=== PATIENT | male | born 1945 | race Caucasian/White ===

== ENCOUNTER 2017-01-07 15:57 | Emergency (ER) | payer MEDICAID, MEDICARE ==
[2017-01-07 15:58] VITALS: BMI 36.9
[2017-01-07 16:26] VITALS: TEMP 97.8
--- NOTE | 2017-01-07 17:01 | ED PDOC ---
Arrival/HPI - General Chief Complaint: Abnormal Labs Time Seen by Provider: 01/07/17 16:28 Historian: Patient, Family - History of Present Illness Narrative History of Present Illness (Text): 01/07/17 19:08 Patient is a 71 yo male, past medical history of cva, past medical history of valvular heart disease on Coumadin, presents to ED from Dr. Gallo's office with history of "high INR" and history of headache, generalized, since last night. Patient has prior history of stroke and denies any new weakness or visual symptoms. Denies neck pain. Denies photophobia. Denies dark or bloody stool. Past Medical History - Tetanus Immunization Tetanus Immunization: Unknown - Cardiac Hx Cardiac Disorders: Yes Hx Hypertension: Yes Hx Pacemaker: Yes - Pulmonary Hx Respiratory Disorders: Yes Hx Asthma: Yes Hx Chronic Obstructive Pulmonary Disease (COPD): Yes - Neurological Hx Neurological Disorder: Yes Other/Comment: neuropathy - HEENT Hx HEENT Disorder: No - Renal Hx Renal Disorder: No - Endocrine/Metabolic Hx Endocrine Disorders: Yes Hx Diabetes Mellitus Type 2: Yes - Hematological/Oncological Hx Blood Disorders: Yes Hx Anemia: Yes - Integumentary Hx Dermatological Disorder: No - Musculoskeletal/Rheumatological Hx Musculoskeletal Disorders: Yes Hx Arthritis: Yes (ANKLE) Hx Falls: Yes Hx Fractures: Yes (CLOSED ANKLE FX) Hx Osteoarthritis: Yes Hx Unsteady Gait: Yes Other/Comment: OBESITY - Gastrointestinal Hx Gastrointestinal Disorders: Yes Hx Gastroesophageal Reflux: Yes - Genitourinary/Gynecological Hx Genitourinary Disorders: No - Psychiatric Hx Psychophysiologic Disorder: No Hx Emotional Abuse: No Hx Physical Abuse: No Hx Substance Use: No - Surgical History 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) - Anesthesia Hx Anesthesia: Yes - Suicidal Assessment Feels Threatened In Home Enviroment: No Family/Social History Family/Social History: Unknown Family HX Smoking Status: Current Some Days Smoker Hx Alcohol Use: No Hx Substance Use: No Hx Substance Use Treatment: No Allergies/Home Meds Allergies/Adverse Reactions: Allergies Penicillins Allergy (Verified 01/07/17 16:17) RASH Home Medications: Home Meds Medication Instructions Recorded Confirmed Losartan/Hydrochlorothiazide 1 tab PO QAM 03/22/12 01/07/17 [Hyzaar 100-25 Tablet] Metoprolol Succinate [Toprol XL] 100 mg PO DAILY 03/22/12 01/07/17 Glipizide [Glipizide] 10 mg PO DAILY 09/19/13 01/07/17 Isosorbide Mononitrate [Isosorbide 30 mg PO DAILY 09/19/13 01/07/17 Mononitrate] Roflumilast [Daliresp] 500 mcg PO DAILY 09/19/13 01/07/17 Tiotropium [Spiriva] 18 mcg INH DAILY 09/19/13 01/07/17 Warfarin [Coumadin] 4 mg PO BID 09/22/13 01/07/17 Omeprazole 40 mg PO DAILY 11/22/13 01/07/17 Ambien 10 mg PO HS 01/27/16 01/07/17 Aspirin 81 mg PO DAILY 01/27/16 01/07/17 Fluticasone Propionate 2 puff PO DAILY 01/27/16 01/07/17 Lasix 40 mg PO DAILY 01/27/16 01/07/17 Lyrica 200 mg PO TID 01/27/16 01/07/17 Nexium 40 mg PO DAILY 01/27/16 01/07/17 PARoxetine 40 mg PO DAILY 01/27/16 01/07/17 Potassium Chloride 20 meq PO DAILY 01/27/16 01/07/17 Pravastatin Sodium 40 mg PO DAILY 01/27/16 01/07/17 metFORMIN 500 mg PO BID 01/27/16 01/07/17 Review of Systems - Review of Systems Constitutional: Fatigue. absent: Fevers Eyes: Vision Changes (chronic visual disturbance) ENT: absent: Hearing Changes, Sore Throat Respiratory: absent: SOB Cardiovascular: absent: Chest Pain Gastrointestinal: absent: Abdominal Pain, Nausea, Vomiting Genitourinary Male: absent: Dysuria, Frequency Musculoskeletal: absent: Back Pain Skin: absent: Rash Neurological: Headache. absent: Dizziness, Focal Weakness, Gait Changes, Speech Changes, Disequilibrium Hemo/Lymphatic: Easy Bleeding Physical Exam - Physical Exam Narrative Physical Exam (Text): Head: Atraumatic. Normocephalic. Eyes: PERRL. EOMI. Visual acuity and visual cooley AT BASELINE as described by patient. No acute visual acuity deficits. ENT: Mucous membranes are moist and intact. Oropharynx is clear and symmetric. Neck: Supple. Full ROM. No JVD. No lymphadenopathy. Cardiovascular: Regular rate. Regular rhythm. Systolic murmur. Pulmonary/Chest: No evidence of respiratory distress. Clear to auscultation bilaterally. No wheezing, rales or rhonchi. Abdominal: Soft and non-distended. There is no tenderness. No rebound, guarding, or rigidity. No organomegaly. Good bowel sounds. Back: No CVA tenderness. Extremities: No edema. No cyanosis. No clubbing. Full range of motion in all extremities. No calf tenderness. Skin: Skin is warm and dry. No petechiae. No purpura. Neurological: Alert, awake. Normal speech. No meningeal signs. No facial droop. No slurred speech. Steady gait. No focal acute weakness, no acute sensory deficits. Psychiatric: Good eye contact. Normal interaction, affect, and behavior. Vital Signs Reviewed: Yes Vital Signs Temp Pulse Resp BP Pulse Ox 01/07/17 20:25 76 16 146/70 98 01/07/17 18:00 69 18 124/61 97 01/07/17 16:27 97.8 F 76 18 126/64 97 01/07/17 16:22 97.8 F 76 16 126/64 97 Temperature: Afebrile Appearance: Positive for: Uncomfortable Pain Distress: Mild Mental Status: Positive for: Alert and Oriented X 3 - Systems Exam Head: Present: Atraumatic, Normocephalic Extroacular Muscles: Present: EOMI Mouth: Present: Moist Mucous Membranes Pharnyx: No: ERYTHEMA Nose (Internal): Present: Normal Inspection Neck: Present: Normal Range of Motion. No: Meningeal Signs Respiratory/Chest: Present: Clear to Auscultation. No: Respiratory Distress Cardiovascular: Present: Regular Rate and Rhythm Abdomen: No: Tenderness, Distention Back: No: CVA Tenderness Upper Extremity: No: Cyanosis, Edema Lower Extremity: No: Edema Neurological: Present: Speech Normal, Motor Func Grossly Intact, Normal Sensory Function, Other (visual field deficits, reports chornic) Skin: Present: Warm Psychiatric: Present: Alert, Normal Concentration Medical Decision Making ED Course and Treatment: Patient sent from Dr. Gallo's office. I discussed his history and presentation with Dr. Gallo. Patient has prior history of stroke that resulted reportedly in visual field deficits. He later clarifies that he does not have a "headache" and describes that he "felt like blood was rushing down my head inside". He denies trauma. Denies neck pain. DENIES any new visual symptoms, denies any numbness or weakness or gait instability. No signs of active bleeding noted, no history of bleeding or hemoptysis or hematuria or melena or bright red blood per rectum. CT head ordered, patient requested ct angio to be obtained. CT angio obtained as prior hx of cva, although current exam with NO acute neuro deficits. CT angio reported as follows: CT Angiography IMPRESSION: No intracranial occlusion or aneurysm. No abnormal enhancement or intracranial mass. Dictated and Authenticated by: Poncho Padilla MD 01/07/2017 8:04 PM Eastern Time ([place] & [place]) This ct report discussed with patient WELL LIMITATIONS of this imaging study in evaluating for bleeds or infarcts at times. I have also discussed patient's elevated INR as well as risks of bleeding, as well as discussed indications for administering Vitamin K. Patient WITH NO CEREBRAL HEMORRHAGE OR ACTIVE BLEEDING NOTED CURRENTLY. Have advised patient, with consultation with PMD, to hold Coumadin and stated that INR needs to be repeated. Risks of subtherapeutic INR d/w patient and in laymen's terms I discussed with him need for repeat INR within 2-3 days. I have advised admission to the hospital as he developed shortness of breath in ED and required nebulizer. He feels better after nebulizer. No headache or focal new neurological symptoms. I have IN LENGTH discussed indications for admission as well as risks and limitations of labs and imaging studies, especially given his past history, and he states he does not want to be admitted to hospital and that he understands risks. Patient will sign out against medical advice. 01/07/17 20:59 Leaving Against Medical Advice (AMA): The patient is choosing to leave against medical advice. I have personally explained to the patient that choosing to do so may result in permanent bodily harm or . I have discussed at great length that without further evaluation and monitoring there may be unforeseen circumstances and/or deterioration causing permanent bodily harm or as a result of their choice. The patient is alert, oriented, and shows the mental capacity to make clear decisions regarding the patients health care at this time. The patient continues to wish to leave against medical advice. The patient has been advised that they should return to the emergency room immediately if they change their mind at any time, or if their condition begins to change or worsen in any way. 0 - Lab Interpretations Lab Results: 01/07/17 17:35 01/07/17 17:35 Lab Results 01/07/17 17:35: WBC 7.4 D, RBC 6.01, Hgb 12.6 L, Hct 39.4 L, MCV 65.6 L, MCH 21.0 L, MCHC 32.0, RDW 17.7 H, Plt Count 202, Gran % 57.7, Lymph % (Auto) 27.3, [place] % (Auto) 9.3 H, Eos % (Auto) 5.2 H, Baso % (Auto) 0.5, Gran # 4.29, Lymph # 2.0, [place] # 0.7 H, Eos # 0.4, Baso # 0.04, PT 82.0 H*, INR 7.59 H*, APTT 56.9 H, Sodium 136, Potassium 3.9, Chloride 98, Carbon Dioxide 26, Anion Gap 16, BUN 23 H, Creatinine 1.2, Est GFR ( Amer) > 60, Est GFR (Non-Af Amer) 60, Random Glucose 168 H, Calcium 9.4, Total Bilirubin 0.7, AST 37, ALT 29, Alkaline Phosphatase 78, Lactate Dehydrogenase 743 H, Total Creatine Kinase 135 , Troponin I < 0.01 D, Total Protein 7.6, Albumin 4.3, Globulin 3.4, Albumin/ Globulin Ratio 1.3 01/07/17 17:16: POC Glucose (mg/dL) 174 H - RAD Interpretation Radiology Orders: 01/07/17 18:08 ANGIOGRAPHY HEAD [CT] Stat Qc Chemist: Radiologist - EKG Interpretation EKG Interpretation (Text): 01/07/17 21:00 normal sinus rhythm rate of [address] elevations Interpreted by ED Physician: Yes Type: 12 lead EKG - Medication Orders Current Medication Orders: Discontinued Medications Albuterol/Ipratropium (Duoneb 3 Mg/0.5 Mg (3 Ml) Ud) 3 ml IH STAT STA Stop: 01/07/17 20:22 Last Admin: 01/07/17 20:35 Dose: 3 ML Glipizide (Glucotrol) 10 mg PO DAILY KALEB Hydrochlorothiazide (Hydrodiuril) 25 mg PO QAM KALEB Iodixanol (Visipaque 320 Mg/Ml 100 Ml) Confirm Administered Dose 100 ml IV .STK- MED ONE Stop: 01/07/17 18:35 Isosorbide Mononitrate (Imdur) 30 mg PO DAILY [facility] Losartan Potassium (Cozaar) 100 mg PO QAM [facility] Metformin HCl (Glucophage) 500 mg PO BID [facility] Metoprolol Succinate (Toprol Xl) 100 mg PO DAILY [facility] Non-Formulary Medication (Isosorbide Mononitrate [Isosorbide Mononitrate]) 30 mg PO DAILY [facility] Paroxetine HCl (Paxil) 40 mg PO DAILY KALEB Pregabalin (Lyrica) 100 mg PO TID [facility] Tiotropium [place] (Spiriva) 18 mcg INH DAILY [facility] Disposition/Present on Arrival - Present on Arrival Any Indicators Present on Arrival: No History of DVT/PE: No History of Uncontrolled Diabetes: No Urinary Catheter: No History of Decub. Ulcer: No History Surgical Site Infection Following: None - Disposition Have Diagnosis and Disposition been Completed?: Yes Diagnosis: Asthma, Elevated INR, Headache Disposition: AGAINST MEDICAL ADVICE Disposition Time: 21:00 Patient Plan: Discharge Condition: GOOD Referrals: Ovi Gallo MD [Primary Care Provider] - Follow up with primary
[2017-01-07 17:50] LABS: ADD MANUAL DIFF? NO
[2017-01-07 17:57] LABS: BASO # 0.04 K/mm3 (0.0-2.0); BASO % 0.5 % (0.0-3.0); EOS # 0.4 (0.0-0.7); EOS % 5.2 % (1.5-5.0); GRAN # 4.29 (1.4-6.5); GRAN % 57.7 % (50.0-68.0); HEMATOCRIT 39.4 % (42.0-52.0); LYMPH % 27.3 % (22.0-35.0); MEAN CELL VOLUME 65.6 fL (80.0-105.0); MONO # 0.7 (0.1-0.6); MONO % 9.3 % (1.0-6.0); PLATELET COUNT 202 10^3/uL (120.0-450.0); RED CELL DISTRIBUTION WIDTH 17.7 % (11.5-14.5); WHITE BLOOD COUNT 7.4 10^3/ul (4.5-11.0)
[2017-01-07 18:10] LABS: ALB/GLOB RATIO 1.3 (1.1-1.8); ALKALINE PHOSPHATASE 78 U/L (38-133); ALT/SGPT 29 U/L (7-56); AST/SGOT 37 U/L (15-59); BILIRUBIN,TOTAL 0.7 mg/dL (0.2-1.3); BLOOD UREA NITROGEN 23 mg/dL (7-21); CALCIUM 9.4 mg/dL (8.4-10.5); CARBON DIOXIDE 26 mmol/L (21-33); CHLORIDE 98 mmol/L (98-107); GFR AFRICAN-AMERICAN > 60; GLUCOSE,RANDOM 168 mg/dL (70-110); POTASSIUM 3.9 mmol/L (3.6-5.0); SODIUM 136 mmol/L (132-148); TOTAL PROTEIN 7.6 g/dL (5.8-8.3)
[2017-01-07 18:15] LABS: PARTIAL THROMBOPLASTIN TIME 56.9 Seconds (23.7-30.8)
[2017-01-07 18:22] LABS: TROPONIN I < 0.01 ng/mL
[2017-01-07 18:26] LABS: INR 7.59 (0.93-1.08)
[2017-01-07] MEDS ORDERED: Iodixanol 320 MG/ML 100 ML BOTTLE IV ONE (18:34)
[2017-01-07] MEDS ORDERED: Albuterol-Ipratrop 3 mg / 0.5 (3 ml) UD IH STA (20:21)
[2017-01-07 20:26] VITALS: BP 146/70; PULSE 76; RESP 16; O2SAT 98
--- NOTE | 2017-01-08 08:32 | CT ---
PROCEDURE: CT Angiography of the Brain. HISTORY: hx of cva COMPARISON: CT head from 10/07/2016 and duplex Doppler examination from 10/14/2016. TECHNIQUE: CT angiography of the intracranial arteries was performed. Coronal and sagittal maximum intensity projection reformated images were generated. FINDINGS: INTERNAL CEREBRAL ARTERIES: Normal in caliber. The skull base, petrous, cavernous and supraclinoid segments are bilaterally widely patient. ANTERIOR CEREBRAL ARTERIES: Normal in caliber. A1 and A2 segments are widely patent. Smaller distal branches unremarkable, as visualized. MIDDLE CEREBRAL ARTERIES: Normal in caliber. M1 and M2 segments are widely patent. Perisylvian branches grossly symmetric. POSTERIOR CIRCULATION: Basilar Artery: Normal in caliber. Distal Vertebral Arteries: Normal in caliber. Posterior Cerebral Arteries: Normal in caliber. Posterior Inferior Cerebellar Arteries: Normal in caliber. ANEURYSM/ VASCULAR MALFORMATIONS: None. OTHER FINDINGS: None. IMPRESSION: No evidence of occlusion, definite significant stenosis or saccular aneurysm. A preliminary report was provided by [employer].
[2017-01-08] MEDS ORDERED: ISOSORBIDE MONONITRATE 30 MG PO SCH ×2 (10:00)
[2017-01-08] MEDS ORDERED: Tiotropium 18 mcg Cap For Inhalation INH SCH (10:00)
[2017-01-08] MEDS ORDERED: Non Formulary Medication (Losartan/Hydrochlorothiazide [Hyzaar 100-25 Tablet] 1 TAB) PO SCH (10:00)
[2017-01-08] MEDS ORDERED: LYRICA 200 MG PO SCH (10:00)
[2017-01-08] MEDS ORDERED: METFORMIN 500 MG PO SCH (10:00)
[2017-01-08] MEDS ORDERED: Metoprolol Succinate 100 mg XL Tab PO SCH (10:00)
[2017-01-08] MEDS ORDERED: PAROXETINE 40 MG PO SCH (10:00)
--- NOTE | 2017-01-08 15:01 | CARD ---
APPROVED REPORT EKG Measurement Heart [id number] <Conclusion> Normal sinus rhythm Normal ECG
== END 2017-01-07 21:00 | disposition left against medical advice (07) ==
LOC: ED 15:57
DX: J45.909 Unspecified asthma, uncomplicated (principal); R51 Headache; R79.1 Abnormal coagulation profile; I10 Essential (primary) hypertension; E11.9 Type 2 diabetes mellitus without complications; Z95.0 Presence of cardiac pacemaker; Z72.0 Tobacco use
CPT/HCPCS: 70496; 80053; 82550; 82948; 83615; 84484; 85025; 85610; 85730; 93005; 99283; Q9967

== ENCOUNTER 2017-01-24 15:40 | Emergency (ER) | payer MEDICARE, MEDICAID ==
[2017-01-24 15:48] VITALS: BP 136/70; PULSE 65; RESP 18; TEMP 98.2; O2SAT 98; BMI 36.6
[2017-01-24] MEDS ORDERED: Albuterol-Ipratrop 3 mg / 0.5 (3 ml) UD IH SCH (16:00)
--- NOTE | 2017-01-24 18:07 | ED PDOC ---
Arrival/HPI - General Time Seen by Provider: 01/24/17 15:44 Historian: Patient - History of Present Illness Narrative History of Present Illness (Text): 01/24/17 15:55 A 71 year old male, whose past medical history includes diabetes, hypertension, atrial fibrillation, and chronic obstructive pulmonary disease, presents to the emergency department complaining of shortness of breath for the patient two days. Shortness of breath is associated with wheezing and chest tightness. Patient denies any fever, cough, or other complaints at this time. PMD: Dr. Gallo Time/Duration: Other (2 days) Symptom Onset: Sudden Symptom Course: Unchanged Quality: Tightness Activities at Onset: Rest Context: Home Past Medical History - Provider Review Nursing Documentation Reviewed: Yes - Tetanus Immunization Tetanus Immunization: Unknown - Cardiac Hx Cardiac Disorders: Yes Hx Hypertension: Yes Hx Pacemaker: Yes - Pulmonary Hx Respiratory Disorders: Yes Hx Asthma: Yes Hx Chronic Obstructive Pulmonary Disease (COPD): Yes - Neurological Hx Neurological Disorder: Yes Other/Comment: neuropathy - HEENT Hx HEENT Disorder: No - Renal Hx Renal Disorder: No - Endocrine/Metabolic Hx Endocrine Disorders: Yes Hx Diabetes Mellitus Type 2: Yes - Hematological/Oncological Hx Blood Disorders: Yes Hx Anemia: Yes - Integumentary Hx Dermatological Disorder: No - Musculoskeletal/Rheumatological Hx Musculoskeletal Disorders: Yes Hx Arthritis: Yes (ANKLE) Hx Falls: Yes Hx Fractures: Yes (CLOSED ANKLE FX) Hx Osteoarthritis: Yes Hx Unsteady Gait: Yes Other/Comment: OBESITY - Gastrointestinal Hx Gastrointestinal Disorders: Yes Hx Gastroesophageal Reflux: Yes - Genitourinary/Gynecological Hx Genitourinary Disorders: No - Psychiatric Hx Psychophysiologic Disorder: No Hx Emotional Abuse: No Hx Physical Abuse: No Hx Substance Use: No - Surgical History 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) - Anesthesia Hx Anesthesia: Yes - Suicidal Assessment Feels Threatened In Home Enviroment: No Family/Social History - Physician Review Nursing Documentation Reviewed: Yes Family/Social History: Unknown Family HX Smoking Status: Current Some Days Smoker Hx Alcohol Use: No Hx Substance Use: No Hx Substance Use Treatment: No Allergies/Home Meds Allergies/Adverse Reactions: Allergies Penicillins Allergy (Verified 01/07/17 16:17) RASH Home Medications: Home Meds Medication Instructions Recorded Confirmed Losartan/Hydrochlorothiazide 1 tab PO QAM 03/22/12 01/07/17 [Hyzaar 100-25 Tablet] Metoprolol Succinate [Toprol XL] 100 mg PO DAILY 03/22/12 01/07/17 Glipizide [Glipizide] 10 mg PO DAILY 09/19/13 01/07/17 Isosorbide Mononitrate [Isosorbide 30 mg PO DAILY 09/19/13 01/07/17 Mononitrate] Roflumilast [Daliresp] 500 mcg PO DAILY 09/19/13 01/07/17 Tiotropium [Spiriva] 18 mcg INH DAILY 09/19/13 01/07/17 Warfarin [Coumadin] 4 mg PO BID 09/22/13 01/07/17 Omeprazole 40 mg PO DAILY 11/22/13 01/07/17 Ambien 10 mg PO HS 01/27/16 01/07/17 Aspirin 81 mg PO DAILY 01/27/16 01/07/17 Fluticasone Propionate 2 puff PO DAILY 01/27/16 01/07/17 Lasix 40 mg PO DAILY 01/27/16 01/07/17 Lyrica 200 mg PO TID 01/27/16 01/07/17 Nexium 40 mg PO DAILY 01/27/16 01/07/17 PARoxetine 40 mg PO DAILY 01/27/16 01/07/17 Potassium Chloride 20 meq PO DAILY 01/27/16 01/07/17 Pravastatin Sodium 40 mg PO DAILY 01/27/16 01/07/17 metFORMIN 500 mg PO BID 01/27/16 01/07/17 Review of Systems - Physician Review All systems were reviewed & negative as marked: Yes - Review of Systems Constitutional: absent: Fevers Respiratory: SOB, Wheezing. absent: Cough Cardiovascular: Chest Pain ("tightness") Physical Exam Vital Signs Reviewed: Yes Vital Signs Temp Pulse Resp BP Pulse Ox 01/24/17 15:47 98.2 F 65 18 136/70 98 Temperature: Afebrile Blood Pressure: Normal Pulse: Regular Respiratory Rate: Normal Appearance: Positive for: Well-Appearing, Non-Toxic, Comfortable Pain Distress: None Mental Status: Positive for: Alert and Oriented X 3 - Systems Exam Head: Present: Atraumatic, Normocephalic Pupils: Present: PERRL Extroacular Muscles: Present: EOMI Conjunctiva: Present: Normal Mouth: Present: Moist Mucous Membranes Neck: Present: Normal Range of Motion Respiratory/Chest: Present: Wheezes (diffuse). No: Good Air Exchange (decrease air entry), Respiratory Distress, Accessory Muscle Use, Rales, Rhonchi Cardiovascular: Present: Regular Rate and Rhythm, Normal S1, S2. No: Murmurs Abdomen: Present: Normal Bowel Sounds. No: Tenderness, Distention, Peritoneal Signs Back: Present: Normal Inspection Upper Extremity: Present: Normal Inspection. No: Cyanosis, Edema Lower Extremity: Present: Normal Inspection. No: Edema Neurological: Present: GCS=15, CN II-XII Intact, Speech Normal Skin: Present: Warm, Dry, Normal Color. No: Rashes Psychiatric: Present: Alert, Oriented x 3, Normal Insight, Normal Concentration Medical Decision Making ED Course and Treatment: EKG: Ordered, reviewed, and independently interpreted the EKG. Rate : 64 BPM Rhythm : NSR Interpretation : normal axis, nonspecific ST changes. 01/24/17 16:45 Chest X-ray: As read by me, no acute findings. Per the RN the pt eloped after receiving one duoneb. - RAD Interpretation Radiology Orders: 01/24/17 16:00 CHEST PORTABLE [RAD] Stat - Medication Orders Current Medication Orders: Discontinued Medications Albuterol/Ipratropium (Duoneb 3 Mg/0.5 Mg (3 Ml) Ud) 3 ml IH Q15M KALEB Stop: 01/24/17 16:31 Last Admin: 01/24/17 16:31 Dose: 3 ML Methylprednisolone (Solu-Medrol) 125 mg IVP STAT STA Stop: 01/24/17 16:01 - Scribe Statement The provider has reviewed the documentation as recorded by the Kirk Valdovinos Provider Scribe Attestation: All medical record entries made by the Scribmaritr were at my direction and personally dictated by me. I have reviewed the chart and agree that the record accurately reflects my personal performance of the history, physical exam, medical decision making, and the department course for this patient. I have also personally directed, reviewed, and agree with the discharge instructions and disposition. Disposition/Present on Arrival - Present on Arrival Any Indicators Present on Arrival: No History of DVT/PE: No History of Uncontrolled Diabetes: No Urinary Catheter: No History Surgical Site Infection Following: None - Disposition Have Diagnosis and Disposition been Completed?: Yes Diagnosis: SOB (shortness of breath), Wheezing, Chest tightness Disposition: ELOPEMENT - ER ONLY Disposition Time: 16:45 Condition: STABLE Referrals: Ovi Gallo MD [Primary Care Provider] - Follow up with primary
--- NOTE | 2017-01-25 09:00 | RAD ---
HISTORY: Shortness of breath COMPARISON: 10/07/2016 FINDINGS: LUNGS: The lungs are well inflated and clear. There is mild pulmonary venous PLEURA: No significant pleural effusion identified, no pneumothorax apparent. CARDIOVASCULAR: Congestion. There is mild cardiomegaly. Status post CABG. Atherosclerotic aortic arch calcifications are present. OSSEOUS STRUCTURES: No significant abnormalities. VISUALIZED UPPER ABDOMEN: Normal. OTHER FINDINGS: None. IMPRESSION: No active pulmonary disease. Persistent mild cardiomegaly and mild pulmonary venous congestion.
--- NOTE | 2017-01-25 09:13 | CARD ---
APPROVED REPORT EKG Measurement Heart [id number] <Conclusion> Normal sinus rhythm Nonspecific ST abnormality Q in 3 No change
== END 2017-01-24 16:50 | disposition left against medical advice (07) ==
LOC: ED 15:40
DX: R06.02 Shortness of breath (principal); R06.2 Wheezing; R07.89 Other chest pain; I10 Essential (primary) hypertension; E11.9 Type 2 diabetes mellitus without complications; Z95.0 Presence of cardiac pacemaker; Z72.0 Tobacco use

== ENCOUNTER 2017-06-23 17:59 | Emergency (ER) | payer MEDICARE, MEDICAID ==
[2017-06-23 18:00] VITALS: BMI 36.6
[2017-06-23 18:11] VITALS: RESP 18; TEMP 98.1; O2SAT 97
[2017-06-23] MEDS ORDERED: Albuterol-Ipratrop 3 mg / 0.5 (3 ml) UD IH STA ×3 (18:22→18:29)
[2017-06-23 19:03] LABS: BASO # 0.02 K/mm3 (0.0-2.0); BASO % 0.3 % (0.0-3.0); EOS # 0.1 (0.0-0.7); GRAN # 5.3 (1.4-6.5); GRAN % 74.5 % (50.0-68.0); LYMPH # 1.3 (1.2-3.4); LYMPH % 18.3 % (22.0-35.0); MEAN CELL VOLUME 76.8 fl (80.0-105.0); MEAN CORPUSCULAR HEMOGLOBIN 25.1 pg (25.0-35.0); MEAN CORPUSCULAR HGB CONC 32.7 g/dl (31.0-37.0); MEAN PLATELET VOLUME 10.3 fl (7.0-11.0); MONO # 0.4 (0.1-0.6); MONO % 5.9 % (1.0-6.0); RED CELL DISTRIBUTION WIDTH 16.3 % (11.5-14.5); WHITE BLOOD COUNT 7.1 10^3/ul (4.5-11.0)
[2017-06-23 19:27] LABS: VENOUS BLOOD PH 7.31 (7.32-7.43)
[2017-06-23 19:34] LABS: ALB/GLOB RATIO 1.6 (1.1-1.8); ALKALINE PHOSPHATASE 54 U/L (38-126); ALT/SGPT 30 U/L (7-56); AST/SGOT 39 U/L (17-59); BILIRUBIN,TOTAL 0.4 mg/dL (0.2-1.3); BLOOD UREA NITROGEN 25 mg/dL (7-21); CALCIUM 9.6 mg/dL (8.4-10.5); CARBON DIOXIDE 28 mmol/L (21-33); CHLORIDE 99 mmol/L (98-107); GFR AFRICAN-AMERICAN > 60; GLUCOSE,RANDOM 248 mg/dL (70-110); POTASSIUM 4.5 mmol/L (3.6-5.0); SODIUM 137 mmol/L (132-148); TOTAL PROTEIN 6.9 g/dL (5.8-8.3)
[2017-06-23 19:47] LABS: TROPONIN I 0.02 ng/mL
--- NOTE | 2017-06-23 20:05 | ED PDOC ---
Arrival/HPI - General Historian: Patient <Kiran Matthews - Last Filed: 06/23/17 20:54> <Tono Petit DO - Last Filed: 06/23/17 22:30> - General Chief Complaint: Shortness Of Breath Time Seen by Provider: 06/23/17 18:19 - History of Present Illness Narrative History of Present Illness (Text): 06/23/17 19:51 Patient is a 71 year old man presenting to the ED from Dr. Gallo's office for wheezing and SOB. Pt has a hx of asthma and COPD. He states that he has been using his albuterol pump approximately 4 times per day for the last two days but he has not been able to control his wheezing. He states he is still smoking a pack of cigarettes per day. Denies any other complaints. States the last time this happened to him, he came to get a steroid shot, felt better and went home. PMD: Dr. Gallo (Kiran Matthews) Past Medical History - Provider Review Nursing Documentation Reviewed: Yes - Infectious Disease Hx of Infectious Diseases: None - Tetanus Immunization Tetanus Immunization: Unknown - Cardiac Hx Cardiac Disorders: Yes Hx Hypertension: Yes Hx Pacemaker: Yes - Pulmonary Hx Respiratory Disorders: Yes Hx Asthma: Yes Hx Chronic Obstructive Pulmonary Disease (COPD): Yes - Neurological Hx Neurological Disorder: Yes Other/Comment: neuropathy - HEENT Hx HEENT Disorder: No - Renal Hx Renal Disorder: No - Endocrine/Metabolic Hx Endocrine Disorders: Yes Hx Diabetes Mellitus Type 2: Yes - Hematological/Oncological Hx Blood Disorders: Yes Hx Anemia: Yes - Integumentary Hx Dermatological Disorder: No - Musculoskeletal/Rheumatological Hx Musculoskeletal Disorders: Yes Hx Arthritis: Yes (ANKLE) Hx Falls: Yes Hx Fractures: Yes (CLOSED ANKLE FX) Hx Osteoarthritis: Yes Hx Unsteady Gait: Yes Other/Comment: OBESITY - Gastrointestinal Hx Gastrointestinal Disorders: Yes Hx Gastroesophageal Reflux: Yes - Genitourinary/Gynecological Hx Genitourinary Disorders: No - Psychiatric Hx Psychophysiologic Disorder: No Hx Emotional Abuse: No Hx Physical Abuse: No Hx Substance Use: No - Surgical History 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) Hx Valve Replacement: Yes Other/Comment: Pacemaker - Anesthesia Hx Anesthesia: Yes - Suicidal Assessment Feels Threatened In Home Enviroment: No <Kiran Matthews - Last Filed: 06/23/17 20:54> Family/Social History - Physician Review Nursing Documentation Reviewed: Yes Family/Social History: Unknown Family HX Smoking Status: Heavy Smoker > 10 Cigarettes Daily Hx Alcohol Use: No Hx Substance Use: No Hx Substance Use Treatment: No <Kiran Matthews - Last Filed: 06/23/17 20:54> Allergies/Home Meds <Kiran Matthews - Last Filed: 06/23/17 20:54> <Tono Petit DO - Last Filed: 06/23/17 22:30> Allergies/Adverse Reactions: Allergies Penicillins Allergy (Verified 06/23/17 18:11) RASH Review of Systems - Physician Review All systems were reviewed & negative as marked: Yes - Review of Systems Constitutional: Normal. absent: Fatigue Respiratory: Wheezing (expiratory). absent: Cough, Sputum Cardiovascular: absent: Chest Pain, Palpitations, Edema, Calf Pain Gastrointestinal: absent: Abdominal Pain, Constipation, Diarrhea, Nausea, Vomiting Genitourinary Male: Normal. absent: Dysuria, Frequency Musculoskeletal: Normal. absent: Back Pain Skin: Normal. absent: Rash, Pruritis Neurological: Normal. absent: Headache, Dizziness Endocrine: Normal, Diaphoresis (Patient states he always sweats and has for years.) Psychiatric: Normal <Kiran Matthews - Last Filed: 06/23/17 20:54> Physical Exam Vital Signs Reviewed: Yes Temperature: Afebrile Blood Pressure: Normal Pulse: Regular Respiratory Rate: Normal Appearance: Positive for: Well-Appearing, Non-Toxic, Comfortable Pain Distress: None Mental Status: Positive for: Alert and Oriented X 3 - Systems Exam Head: Present: Atraumatic, Normocephalic Extroacular Muscles: Present: EOMI Conjunctiva: Present: Normal Mouth: Present: Moist Mucous Membranes Nose (External): Present: Atraumatic. No: Abrasion Nose (Internal): Present: Normal Inspection, No Active Bleeding, Moist. No: Rhinorrhea Neck: Present: Normal Range of Motion. No: JVD Respiratory/Chest: Present: Wheezes (expiratory ). No: Clear to Auscultation, Good Air Exchange, Respiratory Distress, Accessory Muscle Use Cardiovascular: Present: Regular Rate and Rhythm, Normal S1, S2 Abdomen: No: Tenderness, Distention, Normal Bowel Sounds, Peritoneal Signs Upper Extremity: Present: Normal Inspection, Normal ROM, NORMAL PULSES, Capillary Refill < 2s. No: Swelling, Erythema Lower Extremity: Present: Edema (trace pitting edema b/l), NORMAL PULSES, Capillary Refill < 2 s. No: CALF TENDERNESS Neurological: Present: GCS=15, Speech Normal, Motor Func Grossly Intact Skin: Present: Warm, Dry, Normal Color. No: Diaphoretic Psychiatric: Present: Alert, Oriented x 3, Normal Insight, Normal Concentration <Kiran Matthews - Last Filed: 06/23/17 20:54> Medical Decision Making <Kiran Matthews - Last Filed: 06/23/17 20:54> <Tono Petit DO - Last Filed: 06/23/17 22:30> ED Course and Treatment: 06/23/17 20:19 SOB with expiratory wheezing - 3 duoneb treatments - Solu-Medrol 125mg IVP 06/23/17 21:09 Patient re-evaluated, patient wheezing is slightly improved but is still present. Spoke with Dr. Gallo about the patient. He stated he was in agreement to give patient a prescription for steroids and to instruct patient to follow up with him in his office. DISPO: Discharge patient home with prescription of Predisone 40mg PO daily x 5 days. Patient instructed to follow up with Dr. Gallo tomorrow. (Kiran Matthews) A 71 year old male with shortness of breath. In agreement with resident note, which includes further HPI details. Patient was seen and evaluated with resident , came up with plan and treatment together. (Tono Petit DO) - Lab Interpretations Lab Results: 06/23/17 18:50 06/23/17 18:50 Lab Results 06/23/17 18:50: Sodium 137, Chloride 99, Potassium 4.5, Carbon Dioxide 28, Anion Gap 15, BUN 25 H, Creatinine 1.3, Est GFR ( Amer) > 60, Est GFR ( Non-Af Amer) 55, Random Glucose 248 H, Calcium 9.6, Total Bilirubin 0.4, AST 39 , ALT 30, Alkaline Phosphatase 54, Lactate Dehydrogenase 597, Total Creatine Kinase 70, Troponin I 0.02 D, NT-Pro-B Natriuret Pep 437, Total Protein 6.9, Albumin 4.2, Globulin 2.6, Albumin/Globulin Ratio 1.6 06/23/17 18:50: pO2 68 H, VBG pH 7.31 L, VBG pCO2 59.0, VBG HCO3 29.7 H, VBG Total CO2 31.5 H, VBG O2 Sat (Calc) 95.6 H, VBG Base Excess 2.0, VBG Potassium 4.6, Sodium 137.0, Chloride 101.0, Glucose 265 H, Lactate 3.0 H, FiO2 21.0, Venous Blood Potassium 4.6 06/23/17 18:50: WBC 7.1, RBC 5.34, Hgb 13.4 L, Hct 41.0 L, MCV 76.8 L, MCH 25.1 , MCHC 32.7, RDW 16.3 H, Plt Count 115 L, MPV 10.3, Gran % 74.5 H, Lymph % (Auto ) 18.3 L, [place] % (Auto) 5.9, Eos % (Auto) 1.0 L, Baso % (Auto) 0.3, Gran # 5.30 , Lymph # 1.3, [place] # 0.4, Eos # 0.1, Baso # 0.02 - RAD Interpretation Radiology Orders: 06/23/17 18:23 CHEST PORTABLE [RAD] Stat - Medication Orders Current Medication Orders: Discontinued Medications Albuterol/Ipratropium (Duoneb 3 Mg/0.5 Mg (3 Ml) Ud) 3 ml IH STAT STA Stop: 06/23/17 18:23 Last Admin: 06/23/17 18:53 Dose: 3 ml Albuterol/Ipratropium (Duoneb 3 Mg/0.5 Mg (3 Ml) Ud) 3 ml IH STAT STA Stop: 06/23/17 18:29 Last Admin: 06/23/17 18:53 Dose: 3 ml Albuterol/Ipratropium (Duoneb 3 Mg/0.5 Mg (3 Ml) Ud) 3 ml IH STAT STA Stop: 06/23/17 18:30 Last Admin: 06/23/17 18:53 Dose: 3 ml Methylprednisolone (Solu-Medrol) 125 mg IVP STAT STA Stop: 06/23/17 18:23 Last Admin: 06/23/17 18:53 Dose: 125 mg - PA / [employer]ER / Resident Statement JAMES has reviewed & agrees with the documentation as recorded. JAMES has examined the patient and agrees with the treatment plan. <Tono Petit DO - Last Filed: 06/23/17 22:30> Disposition/Present on Arrival - Present on Arrival Any Indicators Present on Arrival: No History of DVT/PE: No History of Uncontrolled Diabetes: No Urinary Catheter: No History of Decub. Ulcer: No History Surgical Site Infection Following: None - Disposition Have Diagnosis and Disposition been Completed?: Yes Disposition Time: 20:55 Patient Plan: Discharge <Kiran Matthews - Last Filed: 06/23/17 20:54> <Tono Petit DO - Last Filed: 06/23/17 22:30> - Disposition Diagnosis: Asthma Disposition: HOME/ ROUTINE Condition: GOOD Discharge Instructions (ExitCare): Asthma (ED) Additional Instructions: Patient is to follow up with Dr. Gallo. Prescriptions: predniSONE [Prednisone] 40 mg PO DAILY #10 tab Referrals: Ovi Gallo MD [Primary Care Provider] - Follow up with primary Forms: [employer] ([place])
[2017-06-23 21:23] VITALS: BP 156/94; PULSE 69
--- NOTE | 2017-06-24 08:17 | RAD ---
HISTORY: SOB COMPARISON: 01/24/2017 FINDINGS: LUNGS: No active pulmonary disease. PLEURA: No significant pleural effusion identified, no pneumothorax apparent. CARDIOVASCULAR: No radiographic findings to suggest acute or significant cardiovascular disease. Incidental Finding(s): Postoperative changes related to sternotomy. OSSEOUS STRUCTURES: No significant abnormalities. VISUALIZED UPPER ABDOMEN: Normal. OTHER FINDINGS: None. IMPRESSION: No active disease. No significant interval change compared to the prior examination(s).
--- NOTE | 2017-06-24 21:02 | CARD ---
APPROVED REPORT EKG Measurement Heart [id number] 162P [id number] <Conclusion> Normal sinus rhythm Normal ECG
== END 2017-06-23 21:22 | disposition home or self-care (01) ==
LOC: ED 17:59
DX: J45.909 Unspecified asthma, uncomplicated (principal); I10 Essential (primary) hypertension; E11.9 Type 2 diabetes mellitus without complications; Z95.0 Presence of cardiac pacemaker; F17.210 Nicotine dependence, cigarettes, uncomplicated
CPT/HCPCS: 71010; 80053; 82550; 82803; 83615; 83880; 84484; 85025; 93005; 96374; 99284; J2930